=== PATIENT | female | born 1960 | race Hispanic/Latino ===

== ENCOUNTER 2024-10-04 19:25 | Emergency (ER) | payer OTHER ==
[2024-10-04] MEDS ORDERED: ONDANSETRON 4 MG/2 ML VIAL ONE (20:41)
[2024-10-04] MEDS ORDERED: KETOROLAC 30 MG/ML INJ ONE (20:41)
[2024-10-04] MEDS ORDERED: METHOCARBAMOL 1,000 MG/10 ML VIAL ONE (20:42)
[2024-10-04] MEDS ORDERED: NA CHLORIDE 0.9% 100 ML ONE (20:42)
[2024-10-04 20:48] LABS: Absolute Eosinophils 0.1 K/uL (0-0.5); Absolute Lymphocytes (CBC) 1.4 K/uL (0.7-4.9); Absolute Monocytes 0.5 K/uL (0.1-1.3); Absolute Neutrophil 4.6 K/uL (1.8-8.0); Basophils % 0.7 % (0-1.3); Eosinophils % 1.2 % (0-4.4); Hematocrit 31.8 % (36.0-45.0); Hemoglobin 11.5 g/dL (12.0-15.0); MCH 31.8 pg (27.0-35.0); MCHC 36.3 g/dL (32.0-36.0); MCV 87.7 fL (80-100); MPV 8.1 fL (7.6-11.3); Monocytes % 6.8 % (3.3-12.3); Neutrophils % 70.3 % (41.7-73.7); Nucleated Red Blood Cells % 0.1 % (0-0); Platelets 259 thou/uL (152-406); RBC Red Blood Cell Count 3.62 M/uL (3.86-4.86); Red Cell Distribution Width 12.8 % (12.1-15.2); Specific Gravity 1.018 (1.005-1.030); Sqamous Epithelial <5 /HPF (None Seen); Urine Bacteria None Seen /HPF (<20); Urine Bilirubin NEGATIVE (Negative); Urine Blood 1+ (Negative); Urine Clarity Clear (Clear); Urine Color Light-Yellow (Yellow); Urine Culture Reflex Order NOT NEEDED; Urine Glucose 4+ (Over) (Negative); Urine Ketones NEGATIVE (Negative); Urine Microscopic Reflex YN ORDER UMIC; Urine Mucus Slight /HPF (None Seen); Urine Nitrite NEGATIVE (Negative); Urine Protein 3+ (Negative); Urine RBC <5 /HPF (None Seen); Urine Urobilinogen Normal (Normal); Urine WBC <5 /HPF (<5)
[2024-10-04 21:05] LABS: Albumin/Globulin Ratio 0.9 (1.1-1.8); Anion Gap 5.7 mEq/L (5.0-15.0); Bilirubin Total 0.4 mg/dL (0.2-1.0); Globulin 3.5 g/dL (2.3-3.5); Potassium 3.7 mEq/L (3.5-5.1); Protein, Total 6.5 g/dL (6.4-8.2)
--- NOTE | 2024-10-04 21:40 | RAD REPORT ---
EXAMINATION: CT ABDOMEN AND PELVIS WITH CONTRAST CLINICAL INDICATION: low back pain;Abd pain TECHNIQUE: CT abdomen and pelvis was performed, after the administration of IV contrast, as per [facility] protocol. Axial, sagittal and coronal reconstructions were obtained. One or more of the following dose reduction techniques were used: Automated exposure control, adjustment of the mA and k V according to patient size, and iterative reconstruction. Unless otherwise specified, incidental findings do not require dedicated imaging follow-up. COMPARISON: No prior exam. FINDINGS: LOWER CHEST: The visualized lung bases are clear. LIVER: Normal in size and contour. No focal lesion. Cholecystectomy clips. SPLEEN: Normal size. No focal lesion. PANCREAS: No mass, ductal dilation, or emerson-pancreatic fluid. ADRENALS: Normal; no mass. KIDNEYS: Normal size and contour. No hydronephrosis. GASTROINTESTINAL TRACT: No evidence of free air, significant intra-abdominal free fluid, bowel obstru ction or abscess. Moderate stool is present throughout the colon. APPENDIX: Normal appendix. LYMPH NODES: No lymphadenopathy. MUSCULOSKELETAL: No acute or suspicious osseous abnormality. ADDITIONAL FINDINGS: None. IMPRESSION: No acute or concerning abnormalities seen in the abdomen or pelvis. Moderate stool throughout the colon.
--- NOTE | 2024-10-04 22:52 | ER ---
Nurse's Notes [facility] Name: Darlyn Wilder Age: 64 yrs Sex: Female : 1960 Arrival Date: 10/04/2024 Time: 19:25 Bed 25 [facility] MD: Diagnosis: Low back pain Presentation: 10/04 19:34 Chief complaint: Patient states: Low back pain onset 4 days ago s/p moving something cm10 heavy. Coronavirus screen: Client denies travel out of the [place] in the last 14 days. Ebola Screen: Patient denies travel to an Ebola-affected area in the 21 days before illness onset. No symptoms or risks identified at this time. Initial Sepsis Screen: Does the patient meet any 2 criteria? No. Patient's initial sepsis screen is negative. Does the patient have a suspected source of infection? No. Patient's initial sepsis screen is negative. Risk Assessment: Do you want to hurt yourself or someone else? Patient reports no desire to harm self or others. Onset of symptoms was September 30, 2024. 19:34 Method Of Arrival: Ambulatory cm10 19:34 Acuity: HEMALATHA 4 cm10 Triage Assessment: 19:36 General: Appears in no apparent distress. uncomfortable, Behavior is calm, cooperative, cm10 appropriate for age. Neuro: No deficits noted. Level of Consciousness is awake, alert, obeys commands, Oriented to person, place, time, situation, Appropriate for age. Historical: - Allergies: 19:35 No Known Allergies; cm10 - PMHx: 19:35 Hypertensive disorder; Diabetes mellitus; Hypercholesterolemia; cm10 - PSHx: 19:35 Nerve Stimulator; cm10 - Immunization history:: Adult Immunizations up to date. - Infectious Disease History:: Denies. - Social history:: Smoking status: Patient denies any tobacco usage or history of. Screenin:09 [facility] ED Fall Risk Assessment (Adult) History of falling in the last 3 months, lg3 including since admission No falls in past 3 months (0 pts) Confusion or Disorientation No (0 pts) Intoxicated or Sedated No (0 pts) Impaired Gait No (0 pts) Mobility Assist Device Used No (0 pt) Altered Elimination No (0 pt) Score/Fall Risk Level 0 - 2 = Low Risk Oriented to surroundings, Maintained a safe environment, Educated pt \T\ family on fall prevention, incl call for assistance when getting out of bed, Assessed \T\ reinforced patient's understanding of fall precautions. Abuse screen: Denies threats or abuse. Denies injuries from another. Nutritional screening: No deficits noted. Tuberculosis screening: No symptoms or risk factors identified. Assessment: 20:00 Reassessment: Patient appears in no apparent distress at this time. Patient and/or jb4 family updated on plan of care and expected duration. Pain level reassessed. Patient is alert, oriented x 3, equal unlabored respirations, skin warm/dry/pink. 21:00 Reassessment: Patient appears in no apparent distress at this time. Patient and/or jb4 family updated on plan of care and expected duration. Pain level reassessed. Patient is alert, oriented x 3, equal unlabored respirations, skin warm/dry/pink. 22:12 Reassessment: Patient appears in no apparent distress at this time. Patient and/or jb4 family updated on plan of care and expected duration. Pain level reassessed. Patient is alert, oriented x 3, equal unlabored respirations, skin warm/dry/pink. 23:08 Reassessment: Patient appears in no apparent distress at this time. No changes from lg3 previously documented assessment. Patient and/or family updated on plan of care and expected duration. Pain level reassessed. Patient is alert, oriented x 3, equal unlabored respirations, skin warm/dry/pink. Patient states feeling better. Vital Signs: 19:34 BP 169 / 76; Pulse 71; Resp 16; Temp 98.2(TE); Pulse Ox 100% on R/A; Weight 70.76 kg; cm10 Height 5 ft. 0 in. ; Pain 10/10; 22:29 BP 150 / 68; Pulse 64; Resp 16; Pulse Ox 98% on R/A; jb4 23:08 BP 154 / 63; Pulse 64; Resp 17; Pulse Ox 99% on R/A; lg3 19:34 Body Mass Index 30.47 (70.76 kg, 152.4 cm) cm10 19:34 Pain Scale: Adult cm10 ED Course: 19:29 Patient arrived in ED. mr 19:35 Triage completed. cm10 19:36 Arm band placed on right wrist. Patient placed in waiting room. cm10 19:39 Jaime Ren PA is PHCP. cp 19:39 Fabiana Mirza MD is Attending Physician. cp 20:42 CBC with Diff Sent. vk 20:42 CMP Sent. vk 20:42 Lipase Sent. vk 20:42 Urinalysis w/ reflexes Sent. vk 20:42 Initial lab(s) drawn, by me, sent to lab. Urine collected: clean catch specimen, clear. vk Inserted saline lock: 20 gauge in right antecubital area, using aseptic technique. Blood collected. Flushed with 10 mL NS. 21:28 CT Abd/Pelvis - IV Contrast Only In Process Unspecified. EDMS 23:09 Patient has correct armband on for positive identification. lg3 23:09 No provider procedures requiring assistance completed. IV discontinued, intact, lg3 bleeding controlled, No redness/swelling at site. Pressure dressing applied. Administered Medications: 20:57 Drug: Methocarbamol IVPB 1 grams IVPB once over 1 hrs; (mix in NS 100 mL) Route: IVPB; jb4 Infused Over: 1 hrs; Site: left antecubital; 23:10 Follow up: Response: No adverse reaction; IV Status: Completed infusion; IV Intake: lg3 100ml 21:01 Drug: TORadol - Ketorolac IVP 15 mg IVP once Route: IVP; Site: left antecubital; jb4 23:10 Follow up: Response: No adverse reaction lg3 21:01 Drug: Ondansetron IVP 4 mg IVP once; over 2 minutes Route: IVP; Site: left antecubital; jb4 23:10 Follow up: Response: No adverse reaction lg3 Medication: 23:09 VIS not applicable for this client. lg3 Intake: 23:10 IV: 100ml; Total: 100ml. lg3 Outcome: 22:51 Discharge ordered by . cp 23:09 Discharged to home ambulatory, with family, lg3 23:09 Condition: stable 23:09 Discharge instructions given to patient, Instructed on discharge instructions, follow up and referral plans. medication usage, Demonstrated understanding of instructions, follow-up care, medications, Prescriptions given X 2, 23:10 Patient left the ED. lg3 Signatures: Dispatcher [employer] EDAR Meera Nazario, Reg Reg mr Jaime Ren, LIO PA cp Lauro Corcoran RN RN jb4 Rocio Turner RN RN lg3 Ni Guidry RN RN cm10 Brenda Thornton Corrections: (The following items were deleted from the chart) 19:36 19:35 PMHx: Headache; cm10 cm10
--- NOTE | 2024-10-04 22:52 | EDPHYS ---
Physician Documentation [facility] Name: Darlyn Wilder Age: 64 yrs Sex: Female : 1960 Arrival Date: 10/04/2024 Time: 19:25 Bed 25 Private MD: ED Physician Fabiana Mirza HPI: 10/04 20:00 This 64 yrs old Female presents to ER via Ambulatory with complaints of Low cp Back Pain. 20:00 The patient presents with pain that is acute. The symptoms are located in the low back. cp The problem was sustained when lifting furniture. 20:00 Onset: The symptoms/episode began/occurred 4 day(s) ago. cp 20:00 The pain radiates to the right leg. Severity of symptoms: in the emergency department cp the symptoms are unchanged, despite home interventions. Patient with history of low back injury and has spinal stimulator placed for pain. Historical: - Allergies: 19:35 No Known Allergies; cm10 - PMHx: 19:35 Hypertensive disorder; Diabetes mellitus; Hypercholesterolemia; cm10 - PSHx: 19:35 Nerve Stimulator; cm10 - Immunization history:: Adult Immunizations up to date. - Infectious Disease History:: Denies. - Social history:: Smoking status: Patient denies any tobacco usage or history of. ROS: 20:05 Back: Positive for pain at rest, pain with movement, cp 20:05 Eyes: Negative for injury, pain, redness, and discharge, cp 20:05 Constitutional: Negative for body aches, chills, fever, poor PO intake, 20:05 Cardiovascular: Negative for chest pain, palpitations, 20:05 Respiratory: Negative for cough, shortness of breath, wheezing, 20:05 Abdomen/GI: Negative for vomiting, diarrhea, constipation, bowel incontinence, 20:05 : Negative for urinary symptoms, difficulty urinating, bladder incontinence, 20:05 Neuro: Negative for numbness, weakness, 20:05 All other systems are negative, Exam: 20:10 Constitutional: The patient appears in no acute distress, alert, awake, non-toxic, well cp developed, well nourished, uncomfortable, 20:10 Head/Face: Normocephalic, atraumatic. cp 20:10 Eyes: Periorbital structures: appear normal, Conjunctiva: normal, no exudate, no injection, Sclera: no appreciated abnormality, Lids and lashes: appear normal, bilaterally, 20:10 ENT: External ear(s): are unremarkable, Nose: is normal, Mouth: Lips: moist, Oral mucosa: moist, Posterior pharynx: Airway: no evidence of obstruction, patent, 20:10 Chest/axilla: Inspection: normal, 20:10 Cardiovascular: Rate: normal, Rhythm: regular, 20:10 Respiratory: the patient does not display signs of respiratory distress, Respirations: normal, no use of accessory muscles, no retractions, labored breathing, is not present, Breath sounds: are clear throughout, no decreased breath sounds, no stridor, no wheezing, 20:10 Abdomen/GI: Inspection: abdomen appears normal, Palpation: abdomen is soft and non-tender, in all quadrants, 20:10 Back: pain, that is moderate, of the low back area, ROM is painful, with all movement, 20:10 Neuro: Motor: moves all fours, no focal deficits, Sensation: no obvious gross deficits, Vital Signs: 19:34 BP 169 / 76; Pulse 71; Resp 16; Temp 98.2(TE); Pulse Ox 100% on R/A; Weight 70.76 kg; cm10 Height 5 ft. 0 in. ; Pain 10/10; 22:29 BP 150 / 68; Pulse 64; Resp 16; Pulse Ox 98% on R/A; jb4 23:08 BP 154 / 63; Pulse 64; Resp 17; Pulse Ox 99% on R/A; lg3 19:34 Body Mass Index 30.47 (70.76 kg, 152.4 cm) cm10 19:34 Pain Scale: Adult cm10 MDM: 19:39 Medical Screening Exam initiated cp 22:50 Data reviewed: vital signs, nurses notes, lab test result(s), radiologic studies, CT cp scan, and as a result, I will discharge patient. 22:50 Differential diagnosis: fracture, sciatica, Herniated disc UTI. I considered the cp following discharge prescriptions or medication management in the emergency department Medications were administered in the Emergency Department. See MAR. Counseling: I had a detailed discussion with the patient and/or guardian regarding the historical points, exam findings, and any diagnostic results supporting the discharge/admit diagnosis, lab results, radiology results, to return to the emergency department if symptoms worsen or persist or if there are any questions or concerns that arise at home. 10/04 19:55 Order name: CBC with Diff; Complete Time: 21:32 10/04 21:32 Interpretation: Normal except: RBC 3.62; HGB 11.5; HCT 31.8; MCHC 36.3. 10/04 19:55 Order name: CMP; Complete Time: 21:32 10/04 21:32 Interpretation: Normal except: CL 108; GLUC 227; CRE 0.43; AST 12; ALB 3.0; A/G 0.9. 10/04 19:55 Order name: Lipase; Complete Time: 21:32 10/04 19:55 Order name: Urinalysis w/ reflexes; Complete Time: 21:32 10/04 21:32 Interpretation: Normal except: UGLUC 4+ (Over); UBLD 1+; UPROT 3+. 10/04 20:29 Order name: CT Abd/Pelvis - IV Contrast Only; Complete Time: 22:39 10/04 22:39 Interpretation: Report reviewed. 10/04 19:55 Order name: IV Saline Lock; Complete Time: 20:42 10/04 19:55 Order name: Labs collected and sent; Complete Time: 20:42 cp Administered Medications: 20:57 Drug: Methocarbamol IVPB 1 grams IVPB once over 1 hrs; (mix in NS 100 mL) Route: IVPB; jb4 Infused Over: 1 hrs; Site: left antecubital; 23:10 Follow up: Response: No adverse reaction; IV Status: Completed infusion; IV Intake: lg3 100ml 21:01 Drug: TORadol - Ketorolac IVP 15 mg IVP once Route: IVP; Site: left antecubital; jb4 23:10 Follow up: Response: No adverse reaction lg3 21:01 Drug: Ondansetron IVP 4 mg IVP once; over 2 minutes Route: IVP; Site: left antecubital; jb4 23:10 Follow up: Response: No adverse reaction lg3 Disposition Summary: 10/04/24 22:51 Discharge Ordered Notes: Location: Home cp Problem: new cp Symptoms: have improved cp Condition: Stable cp Diagnosis - Low back pain cp Followup: cp - With: Private Physician - When: 5 - 6 days - Reason: pain continues Discharge Instructions: - Discharge Summary Sheet cp - Acute Back Pain, Adult cp - Back Injury Prevention, [id number] cp - Heat Therapy cp - Back Exercises cp Forms: - Medication Reconciliation Form cp - Antibiotic Education cp - Prescription Opioid Use cp - Patient Portal Instructions cp - Leadership Thank You Letter cp Prescriptions: - Anaprox DS 550 mg Oral Tablet - take 1 tablet ORAL route every 12 hours As needed; 20 tablet; Refills: 0, cp Product Selection Permitted - methocarbamol 750 mg Oral tablet - take 1 tablet ORAL route 3 times per day; 30 tablet; Refills: 0, Product cp Selection Permitted Addendum: 10/05/2024 23:46 Co-signature as Attending Physician, Fabiana Mirza MD I reviewed the patient's care s d2 provided by the Advanced Practice Provider and agree with the diagnosis and treatment plan. Signatures: Dispatcher [employer] EDMS Jaime Ren PA PA cp Bryson, James, RN RN jb4 Fabiana Mirza MD MD sd2 Ni Guidry RN RN cm10 Rocio Turner RN lg3 Corrections: (The following items were deleted from the chart) 10/04 19:36 19:35 PMHx: Headache; cm10 cm10
[2024-10-04 23:49] VITALS: TEMP 98.2
[2024-10-05 00:13] VITALS: BP 154/63; O2SAT 99
== END 2024-10-04 23:10 | disposition home or self-care (01) ==
LOC: ER 19:25
DX: M54.50 Low back pain, unspecified (principal); Z96.82 Presence of neurostimulator
CPT/HCPCS: 96365; 85025; 81001; 36415; 83690; 80053; 74177; 96375; 99284; 96366; Q9967; J2405; J2800